=== PATIENT | male | born 1990 | race African-American/Black ===

== ENCOUNTER 2021-10-05 12:26 | Emergency (ER) | payer SELFPAY ==
[2021-10-05 14:32] LABS: #Eosinphils 0.1 10x3/uL (0.0-0.5); %Basophils 0.4 % (0.0-2.0); %Eosinophils 1.2 % (0.0-6.0); %Lymphocytes 32.5 % (18.0-47.0); %Monocytes 11.1 % (0.0-10.0); %Neutrophils 54.1 % (40.0-75.0); Hemoglobin 14.3 g/dL (13.5-17.5); Mean Corpuscular HGB CONC 34.2 g/dL (32.0-36.0); Mean Corpuscular Hemoglobin 31.4 pg (27.0-33.0); Mean Corpuscular Volume 91.7 fl (81.2-95.1); Platelet Count 329 10x3/uL (150-450); Red Blood Cell (RBC) Count 4.56 10x6/uL (4.32-5.72); White Blood Cell (WBC) Count 9.2 10x3/uL (3.5-10.5)
[2021-10-05 14:47] LABS: ALT (SGPT) 33 U/L (8-55); AST (SGOT) 23 U/L (5-34); Albumin 4.3 g/dL (3.5-5.0); Alkaline Phosphatase 87 U/L (40-110); Anion Gap 11 mmol/L (10-20); BUN (Urea Nitrogen) 15 mg/dL (8.9-20.6); Bilirubin, Total 0.2 mg/dL (0.2-1.2); Calc. Creatinine Clearance 0 mL/min (70-130); Carbon Dioxide 26 mmol/L (22-29); Chloride 103 mmol/L (98-107); Globulin 3.6 g/dL (2.4-3.5); Glucose 98 mg/dL (70-105); Potassium 4.3 mmol/L (3.5-5.1); Protein, Total 7.9 g/dL (6.0-8.3); Sodium 136 mmol/L (136-145)
== END 2021-10-05 14:56 | disposition home or self-care (01) ==
LOC: CSHERS 12:26
DX: L29.9 Pruritus, unspecified (principal); F17.210 Nicotine dependence, cigarettes, uncomplicated
CPT/HCPCS: 36415; 80053; 85025; 99283

== ENCOUNTER 2022-06-15 14:07 | Emergency (ER) | payer BC, SELFPAY ==
[2022-06-15] MEDS ORDERED: Diazepam 10 MG/2 ML SYRINGE ONE (15:00)
== END 2022-06-15 15:11 | disposition home or self-care (01) ==
LOC: CSHERS 14:07
DX: M54.50 Low back pain, unspecified (principal); F17.210 Nicotine dependence, cigarettes, uncomplicated
CPT/HCPCS: 99283; J3360

== ENCOUNTER 2022-07-19 16:44 | Emergency (ER) | payer BC | END 2022-07-19 17:33 | disposition home or self-care (01) | LOC: CSHERS 16:44 | DX: R19.7 Diarrhea, unspecified (principal); F17.210 Nicotine dependence, cigarettes, uncomplicated | CPT/HCPCS: 99283 ==

== ENCOUNTER 2022-08-15 10:39 | Emergency (ER) | payer BC | END 2022-08-15 11:15 | disposition home or self-care (01) | LOC: CSHERS 10:39 | DX: M54.50 Low back pain, unspecified (principal); I10 Essential (primary) hypertension; F17.210 Nicotine dependence, cigarettes, uncomplicated | CPT/HCPCS: 99282 ==

== ENCOUNTER 2022-08-17 15:39 | Emergency (ER) | payer BC, OTHER ==
[2022-08-17] MEDS ORDERED: Lidocaine 1% (PF) 30 ML VIAL ONE (15:56)
[2022-08-17] MEDS ORDERED: HYDROcodone/Acetaminophen 5/325 mg Tablet ONE (16:00)
[2022-08-17] MEDS ORDERED: Boostrix 0.5 ML (Tdap) VIAL (>/=7 yrs of age) ONE (16:00)
[2022-08-17] MEDS ORDERED: CEFAZOLIN 2 GM VIAL ONE (16:13)
== END 2022-08-17 18:37 | disposition home or self-care (01) ==
LOC: CSHERS 15:39
DX: S62.630B Displaced fracture of distal phalanx of right index finger, initial encounter for open fracture (principal); W22.8XXA Striking against or struck by other objects, initial encounter; F17.210 Nicotine dependence, cigarettes, uncomplicated
CPT/HCPCS: 11760; 90471; 90715; 96365; J2001

== ENCOUNTER 2022-10-03 09:43 | Emergency (ER) | payer SELFPAY, OTHER ==
[2022-10-03] MEDS ORDERED: Ketorolac Tromethamine 30 MG/ML VIAL ONE (11:49)
== END 2022-10-03 12:46 | disposition home or self-care (01) ==
LOC: CSHERS 09:43
DX: S09.90XA Unspecified injury of head, initial encounter (principal); M25.512 Pain in left shoulder; F17.210 Nicotine dependence, cigarettes, uncomplicated; V49.9XXA Car occupant (driver) (passenger) injured in unspecified traffic accident, initial encounter
CPT/HCPCS: 70450; 71045; 96372; J1885

== ENCOUNTER 2022-10-16 21:46 | Emergency (ER) | payer OTHER, SELFPAY ==
[2022-10-16 22:43] LABS: #Basophils 0.1 10x3/uL (0.0-0.2); #Eosinphils 0.1 10x3/uL (0.0-0.5); #Monocytes 1.8 10x3/uL (0.0-1.1); #Neutrophils 11.8 10x3/uL (1.5-8.4); %Basophils 0.5 % (0.0-2.0); %Eosinophils 0.7 % (0.0-6.0); %Lymphocytes 18.9 % (18.0-47.0); %Monocytes 10.4 % (0.0-10.0); %Neutrophils 68.9 % (40.0-75.0); Mean Corpuscular HGB CONC 34.6 g/dL (32.0-36.0); Mean Corpuscular Hemoglobin 31.4 pg (27.0-33.0); Mean Corpuscular Volume 90.8 fl (81.2-95.1); Mean Platelet Volume 9.1 fl (7.4-10.4); Platelet Count 336 10x3/uL (150-450); RBC Distribution Width 13.5 % (11.5-14.5); Red Blood Cell (RBC) Count 4.46 10x6/uL (4.32-5.72); White Blood Cell (WBC) Count 17.2 10x3/uL (3.5-10.5)
[2022-10-16 22:56] LABS: ALT (SGPT) 17 U/L (8-55); AST (SGOT) 17 U/L (5-34); Albumin 4.1 g/dL (3.5-5.0); Alkaline Phosphatase 96 U/L (40-110); Anion Gap 16 mmol/L (10-20); BUN (Urea Nitrogen) 14 mg/dL (8.9-20.6); Bilirubin, Total 0.2 mg/dL (0.2-1.2); Calc. Creatinine Clearance 0 mL/min (70-130); Calcium 8.9 mg/dL (7.8-10.44); Carbon Dioxide 22 mmol/L (22-29); Chloride 104 mmol/L (98-107); Estimated GFR 94; Globulin 3.7 g/dL (2.4-3.5); Glucose 83 mg/dL (70-105); Potassium 4.1 mmol/L (3.5-5.1); Protein, Total 7.8 g/dL (6.0-8.3); Sodium 138 mmol/L (136-145)
[2022-10-17] MEDS ORDERED: Ketorolac Tromethamine 30 MG/ML VIAL ONE (00:49)
[2022-10-17 01:17] LABS: Bilirubin Neg (Negative); Blood, Urine 50 (Negative); Clarity Clear (Clear); Glucose, Urine (Dipstick) Normal (Negative); Ketone, Urine Negative (Negative); Leukocyte 25 (Negative); Nitrite Negative (Negative); Protein, Urine (Dipstick) 15 mg/dl (Neg-Trace); Specific Gravity, Urine 1.015 (1.005-1.030); Urobilinogen Normal mg/dL (Less than 2)
[2022-10-17 01:33] LABS: WBC/HPF 0-3 HPF (0-3)
[2022-10-17 01:34] LABS: Bacteria/HPF None Seen HPF (None Seen); Squamous Epithelial 0-3 HPF (0-3)
== END 2022-10-17 02:20 | disposition home or self-care (01) ==
LOC: CSHERS 21:46
DX: I86.1 Scrotal varices (principal); F17.210 Nicotine dependence, cigarettes, uncomplicated
CPT/HCPCS: 36415; 76870; 80053; 81003; 81015; 85025; 93976; 96372; J1885

== ENCOUNTER 2024-04-04 12:21 | Emergency (ER) | payer SELFPAY ==
[2024-04-04] MEDS ORDERED: cefTRIAXone (ROCEPHIN) 500 MG VIAL ONE (14:02)
[2024-04-04] MEDS ORDERED: Lidocaine 1% PF 5 ML VIAL ONE (14:02)
[2024-04-04 14:11] LABS: Bilirubin Neg (Negative); Blood, Urine 10 (Negative); Glucose, Urine (Dipstick) Normal (Negative); Ketone, Urine Negative (Negative); Leukocyte 25 (Negative); Nitrite Negative (Negative); Protein, Urine (Dipstick) Negative (Neg-Trace); Urobilinogen Normal mg/dL (Less than 2)
[2024-04-04 14:14] LABS: Clarity Clear (Clear)
[2024-04-04 14:30] LABS: CAUTI Indications for Culture Pelvic or flank pain; Squamous Epithelial 21-50 HPF (0-3)
[2024-04-04 14:31] LABS: Bacteria/HPF Rare-Few HPF (None Seen); Urine Culture Reflex No No
[2024-04-05 02:02] LABS: Chlam.trachomatis by PCR,Urine Not Detected (NotDetected); GC N.gonorrhoeae PCR,UrineVOID Not Detected (NotDetected)
== END 2024-04-04 14:10 | disposition home or self-care (01) ==
LOC: CSHERS 12:21
DX: N45.1 Epididymitis (principal)
CPT/HCPCS: 81001; 87491; 87591; 96372; 99284; J0696